=== PATIENT | male | born 1985 | race African-American/Black ===

== ENCOUNTER 2017-09-28 16:45 | Emergency (ER) | payer OTHER ==
[~2017-09-28] VITALS: Ht 165.1 cm; Wt 61.0 kg
[2017-09-28] MEDS ORDERED: IPRATROPIUM BROMIDE (0.02%) 0.5MG/2.5ML NEB HHN STA (18:26)
[2017-09-28] MEDS ORDERED: ALBUTEROL (0.083%) 2.5MG/3ML NEB HHN STA (18:26)
[2017-09-28] MEDS ORDERED: PREDNISONE 20MG TABLET PO ONE (19:15)
[2017-09-28 20:32] VITALS: BP 123/76
== END 2017-09-28 20:35 | disposition home or self-care (01) ==
LOC: ER 18:23
DX: J45.901 Unspecified asthma with (acute) exacerbation (principal)
CPT/HCPCS: 94640; 99283; J7512; J7611

== ENCOUNTER 2020-02-12 11:15 | Emergency (ER) | payer MEDICAID, OTHER ==
[~2020-02-12] VITALS: Ht 165.1 cm; Wt 64.0 kg
[2020-02-12 11:16] VITALS: BP 124/83
== END 2020-02-12 12:14 | disposition home or self-care (01) ==
LOC: ER 11:15
DX: M26.602 Left temporomandibular joint disorder, unspecified (principal); J45.909 Unspecified asthma, uncomplicated
CPT/HCPCS: 99282

== ENCOUNTER 2024-04-23 15:33 | Emergency (ER) | payer MEDICAID, OTHER ==
[~2024-04-23] VITALS: Ht 165.1 cm; Wt 68.0 kg
[2024-04-23 15:38] VITALS: BP 138/81; PULSE 82; RESP 16; TEMP 98.4; O2SAT 96
[2024-04-23] MEDS ORDERED: IBUP-2029 MT (17:20)
[2024-04-23] MEDS ORDERED: IBUPROFEN 600MG TABLET PO ONE (17:30)
[2024-04-23] MEDS ORDERED: ACET-3800 MT (17:39)
== END 2024-04-23 17:40 | disposition home or self-care (01) ==
LOC: ER 15:33
DX: R51.9 Headache, unspecified (principal); J45.909 Unspecified asthma, uncomplicated
CPT/HCPCS: 99281